=== PATIENT | female | born 1970 | race Caucasian/White ===

== ENCOUNTER 2017-09-15 23:04 | Emergency (ER) | payer MEDICAID ==
[~2017-09-15] VITALS: Ht 165.1 cm; Wt 74.8 kg
[2017-09-15 23:33] VITALS: BP 131/80
[2017-09-16] MEDS ORDERED: TETANUS-DIPTH-ACEL PERTUSSIS 0.5ML SYRG IM ONE (03:30)
[2017-09-16] MEDS ORDERED: ACETAMINOPHEN/CODEINE#3 (300/30mg) TAB PO ONE (03:30)
== END 2017-09-16 03:56 | disposition home or self-care (01) ==
LOC: ER 23:06
DX: S61.432A Puncture wound without foreign body of left hand, initial encounter (principal); Z88.1 Allergy status to other antibiotic agents; W54.0XXA Bitten by dog, initial encounter; Y93.89 Activity, other specified; Y92.89 Other specified places as the place of occurrence of the external cause; Y99.8 Other external cause status
CPT/HCPCS: 90471; 90715

== ENCOUNTER 2021-11-08 20:54 | Emergency (ER) | payer BC, MEDICAID ==
[~2021-11-08] VITALS: Ht 165.1 cm; Wt 59.0 kg
[2021-11-09] MEDS ORDERED: HYDROcodone-ACET 5/325MG TAB PO ONE (03:45)
[2021-11-09 03:48] VITALS: BP 143/84
[2021-11-09] MEDS ORDERED: CLINDAMYCIN 600MG IV 50 ML IV ONE (05:15)
[2021-11-09] MEDS ORDERED: DOXYCYCLINE 100 MG TAB/CAP PO ONE (05:15)
[2021-11-09] MEDS ORDERED: TETANUS-DIPTH-ACEL PERTUSSIS 0.5ML SYR Tdap IM ONE (05:15)
[2021-11-09] MEDS ORDERED: ONDANSETRON HCL 4 MG/2 ML VIAL IV ONE (06:15)
[2021-11-09] MEDS ORDERED: NAPR500T31 PO (06:52)
[2021-11-09] MEDS ORDERED: CLIN300C8 PO (06:52)
== END 2021-11-09 07:15 | disposition home or self-care (01) ==
LOC: ER 20:54
DX: S61.214A Laceration without foreign body of right ring finger without damage to nail, initial encounter (principal); Z88.0 Allergy status to penicillin; W54.0XXA Bitten by dog, initial encounter; Y93.89 Activity, other specified; Y92.89 Other specified places as the place of occurrence of the external cause; Y99.8 Other external cause status
CPT/HCPCS: 12002; 73140; 90471; 90715; 96365; 96375; 99284; J2405; J3490